=== PATIENT | male | born 1930 | race Caucasian/White ===

== ENCOUNTER 2017-01-13 12:41 | Inpatient (IN) | payer MEDICARE, OTHER ==
[2017-01-11 21:54] LABS: T 7 2.4 (1.35-5.40); T4 (THYROXINE) TOTAL 7.5 MCG/DL (4.5-12.0)
[2017-01-11 21:57] LABS: ULTRASENSITIVE TSH 0.352 MCIU/ML (0.358-3.740)
[~2017-01-13] VITALS: Ht 180.3 cm; Wt 109.8 kg
--- NOTE | ~2017-01-13 | OP ---
Record Of Operation [facility] [address] [place]. [address] NAME: KAM IRELAND : 34 STATUS : ADM Tatyana PAT#: [id number] AGE: 86 ADM/REG DATE : 01/13/17 MR#: [id number] REPORT SERV DATE: 01/14/17 DICTATED BY: ZAID RUDOLPH DATE: 01/13/17 REPORT STATUS : Draft TRANSCRIBED BY: MODL DATE: 01/13/17 DATE OF PROCEDURE: 01/13/2017 POSTOPERATIVE DIAGNOSIS: Left trimalleolar ankle fracture. POSTOPERATIVE DIAGNOSIS: Left trimalleolar ankle fracture. PROCEDURE: Open treatment of left trimalleolar ankle fracture with fixation of posterior lip. SURGEON: Zaid Rudolph MD. ANESTHESIA: General. ESTIMATED BLOOD LOSS: 50. IMPLANTS: Arthrex system. SPECIMEN: None. ANTIBIOTICS: Ancef was given prior to incision. HISTORY: The patient is an 86-year-old who slipped at his home today and fell and twisted his ankle. Found to have an ankle fracture in the emergency department. He was found have a trimalleolar ankle fracture on the x-rays and had it reduced in the emergency department. He was then admitted to the hospital. We discussed risks and benefits of surgery and nonoperative treatment due to the subluxation of his ankle, and he elects to proceed. We discussed the risks including cardiopulmonary complication, anesthesia, damage to surrounding tissue, malunion, nonunion, failure of implants, infection, and DVT. After discussing those risks, he elected to proceed. OPERATIVE NOTE: The patient was in the preoperative area, consented, and marked. We answered all the questions she had to her satisfaction. She was then taken to the operative suite, placed in supine position and underwent general anesthesia. Prepped and draped the left leg in a sterile fashion and paused to perform a time-out confirming the correct patient, procedure, diagnosis, and extremity. I first made a posterior lateral approach to the fibula and dissected down to the fibula. He had a very comminuted fibular fracture. I was able to reduce it manually and held it with a clamp. I fixated it first distally with a plate and then pulled traction to gain my length and then fixated the plate proximally. We placed 4 screws proximally and 3 locking screws distally to hold our fibular length out. We used the plate to span the fracture due to the comminution of the fracture. We then turned our attention the posterior malleolus fracture. I dissected in between the peroneals and FHL down to the posterior tibia. I was able to palpate the fracture and then dorsiflex the ankle and reduced and then placed the plate Record Of Operation [facility] [address] [place]. [address] NAME: KAM IRELAND : 34 STATUS : ADM Tatyana PAT#: [id number] AGE: 86 ADM/REG DATE : 01/13/17 MR#: [id number] REPORT SERV DATE: 01/14/17 DICTATED BY: ZAID RUDOLPH DATE: 01/13/17 REPORT STATUS : Draft TRANSCRIBED BY: SELINA DATE: 01/13/17 posteriorly and placed three screws holding the fracture reduced in a buttress-type fashion. We took x-rays throughout this process to get our appropriate reduction and implant placement. With the fibula and posterior malleolus fixed, we then went to the medial malleolus. I made an incision over the medial malleolus. I was able to manually reduce under direct visualization. I took x-rays to confirm reduction and placed two 40 mm partially-threaded screws holding the fracture reduced. When all the implants were completed, we took our final x-rays in AP, mortise, lateral, and stress view and he was stable with all with range of motion. We then irrigated all the wounds, closed the wounds, placed him in a splint. He was awakened with no complications and taken to PACU in stable condition. POSTOP PLAN: He will be admitted to the floor, postop protocol. SANTY/SELINA Zaid Rudolph MD / [id number]
--- NOTE | ~2017-01-13 | HP ---
History And Physical [facility] [id number] [place]. [address] NAME: KAM IRELAND : 34 STATUS : [facility]#: [id number] AGE: 86 ADM/REG DATE : 01/13/17 MR#: [id number] REPORT SERV DATE: 01/13/17 DICTATED BY: ZAID RUDOLPH DATE: 01/13/17 REPORT STATUS : Draft TRANSCRIBED BY: MODNia DATE: 01/13/17 DATE OF ADMISSION: 01/13/2017 CHIEF COMPLAINT: Left trimalleolar ankle fracture. HISTORY OF PRESENT ILLNESS: The patient is an 86 year old, who slipped on a slick floor at his home today and fell down, twisted his ankle. He had a deformity of his ankle. He was brought to the emergency department. In the emergency department, he was found to have a displaced trimalleolar ankle fracture. They reduced it and placed him in a splint. Orthopedics was consulted based on this fracture. He is more comfortable in the splint. PAST MEDICAL HISTORY: He has had coronary artery disease. 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 MEDICATIONS: He is on aspirin 325, Lasix, Lotensin, atenolol, atorvastatin, tamsulosin, and prednisone for the dermatitis. SOCIAL HISTORY: , lives with , and retired. FAMILY HISTORY: Noncontributory. ALLERGIES: TO PENICILLIN. REVIEW OF SYSTEMS: Times 10 is negative except for above. PHYSICAL EXAMINATION: GENERAL: A well-developed, well-nourished male, in no acute distress. HEENT: Normocephalic and atraumatic. RESPIRATORY: Nonlabored respirations. Equal chest rise bilaterally. EXTREMITIES: No cyanosis or clubbing. He has mild edema in both bilateral lower extremities. SKIN: He has an erythematous dermatitis rash on his lower extremities and upper extremities. No lacerations. MUSCULOSKELETAL: He is in a splint in his left lower extremity. He can move his toes. Sensation is intact to light touch. NEUROLOGIC: Alert and oriented x3. PSYCHIATRIC: Appropriate mood and affect. IMAGING STUDIES: X-rays show a displaced trimalleolar ankle fracture. ASSESSMENT AND PLAN: Trimalleolar ankle fracture. He has been n.p.o. since 8 a.m., so we will plan for surgery today since he still subluxed. We have discussed the risks and benefits of surgery and nonoperative treatment extensively with him. He wants to proceed with surgery, so we will plan for open reduction and internal fixation of left trimalleolar ankle fracture today. History And Physical [address] [place]. [address] NAME: KAM IRELAND : 34 STATUS : [facility]P PAT#: [id number] AGE: 86 ADM/REG DATE : 01/13/17 MR#: [id number] REPORT SERV DATE: 01/13/17 DICTATED BY: ZAID RUDOLPH DATE: 01/13/17 REPORT STATUS : Draft TRANSCRIBED BY: SELINA DATE: 01/13/17 SANTY/SELINA Zaid Rudolph MD / [id number] CC: Prabhjot Sawyer M.D.
[2017-01-13] MEDS ORDERED: ASABAYER PO (15:19)
[2017-01-13 15:24] LABS: BASOPHILS 0 %; EOSINOPHILS 0 %; HEMOGLOBIN 12.1 g/dL (13.6-17.8); IMMATURE GRANULOCYTES 0.6 %; IMMATURE GRANULOCYTES ABSOLUTE 0.06 10/3/uL (0.0-0.11); LYMPHOCYTES 8.5 %; LYMPHOCYTES ABSOLUTE 0.84 10/3/uL (0.67-4.30); MEAN CORPUSCULAR HEMOGLOB 31.9 pg (26.0-34.0); MEAN CORPUSCULAR VOLUME 96.8 fL (80-100); MEAN PLATELET VOLUME 10.1 fL (9.2-13.0); MONOCYTES 2.5 %; MONOCYTES ABSOLUTE 0.25 10/3/uL (0.21-1.20); NEUTROPHILS 88.4 %; NEUTROPHILS ABSOLUTE 8.79 10/3/uL (2.02-8.40); PLATELET COUNT 209 10/3/uL (150-400); RBC DISTRIBUTION WIDTH 14.6 % (12.0-16.0); RED CELL COUNT 3.79 10/6/uL (4.7-6.1)
[2017-01-13] MEDS ORDERED: LOTE10 PO (15:24)
[2017-01-13] MEDS ORDERED: LIPITOR10 PO (15:24)
[2017-01-13] MEDS ORDERED: L20 PO (15:24)
[2017-01-13] MEDS ORDERED: ATEN50 PO (15:24)
[2017-01-13 15:25] LABS: HEMATOCRIT 36.7 % (40.0-51.0); MANUAL DIFF NO %; WHITE BLOOD CELLS 9.9 10/3/uL (4.5-10.5)
[2017-01-13] MEDS ORDERED: FLOMAX4 PO (15:25)
[2017-01-13] MEDS ORDERED: P20 PO (15:26)
[2017-01-13 15:35] LABS: BUN (BLOOD UREA NITROGEN) 25 MG/DL (6-23); CHLORIDE, SERUM 106 MMOL/L (96-112); CO2 (CARBON DIOXIDE) 28 MMOL/L (24-34); GFR AFRICAN AMERICAN 71 ML/MIN (>=60); GFR NON AFRICAN AMERICAN 61 ML/MIN (>=60); GLUCOSE, SERUM 159 MG/DL (60-99); POTASSIUM, SERUM 3.8 MMOL/L (3.5-5.3); SODIUM, SERUM 141 MMOL/L (135-148)
[2017-01-13 15:38] LABS: INTERNATIONAL NORMAL RATI 1.2 UNITS (-); PROTIME (NOT ORD) 15.1 SEC (12.0-14.5)
[2017-01-14 04:52] LABS: HEMATOCRIT 34.5 % (40.0-51.0); HEMOGLOBIN 11.4 g/dL (13.6-17.8)
[2017-01-14 04:55] LABS: BUN (BLOOD UREA NITROGEN) 28 MG/DL (6-23); CALCIUM, SERUM 8.7 MG/DL (8.5-10.4); CHLORIDE, SERUM 105 MMOL/L (96-112); CO2 (CARBON DIOXIDE) 30 MMOL/L (24-34); CREATININE 1.02 MG/DL (0.70-1.30); GFR AFRICAN AMERICAN 78 ML/MIN (>=60); GFR NON AFRICAN AMERICAN 67 ML/MIN (>=60); POTASSIUM, SERUM 3.7 MMOL/L (3.5-5.3); SODIUM, SERUM 141 MMOL/L (135-148)
[2017-01-14 04:56] LABS: GLUCOSE, SERUM 85 MG/DL (60-99)
[2017-01-14] MEDS ORDERED: ZOFRAN4 PO (15:09)
[2017-01-14] MEDS ORDERED: NORCO1 TAB PO (15:09)
== END 2017-01-14 18:25 | disposition home or self-care (01) | DRG 494 ==
LOC: ENRESERVTM → ENRESERV → ENRESERVDT → ER 12:41 → 1SO 22:03
PROVIDERS: Family Medicine; Orthopaedic Surgery Sports Medicine; Physician Assistant
PROC: 0QSH04Z Reposition Left Tibia with Internal Fixation Device, Open Approach (ICD-10-PCS; 2017-01-13)
PROC: 0QSH04Z Reposition Left Tibia with Internal Fixation Device, Open Approach (ICD-10-PCS; 2017-01-13)
PROC: 0QSK04Z Reposition Left Fibula with Internal Fixation Device, Open Approach (ICD-10-PCS; principal; 2017-01-13 17:15)
DX: S82.852A Displaced trimalleolar fracture of left lower leg, initial encounter for closed fracture (principal); Z95.1 Presence of aortocoronary bypass graft; I25.10 Atherosclerotic heart disease of native coronary artery without angina pectoris; W01.0XXA Fall on same level from slipping, tripping and stumbling without subsequent striking against object, initial encounter; Y92.019 Unspecified place in single-family (private) house as the place of occurrence of the external cause; Z88.0 Allergy status to penicillin
CPT/HCPCS: 71010; 73610-LT; 76001; 80048; 84436; 84443; 84479; 85014; 85018; 85025; 85610; 85730; 93005; 94640; 96374; 96375; 97161-GP; 97530-GP; 99285; A9270-GY; C1713; G8978-CK-GP; G8979-CK-GP; J0330; J0360; J0690; J1170; J1720; J1885; J2405; J2710; J3010